=== PATIENT | male | born 1970 | race Caucasian/White ===

== ENCOUNTER 2016-11-29 23:30 | Emergency (ER) | payer OTHER ==
[~2016-11-29] VITALS: Ht 175.3 cm; Wt 105.7 kg
[2016-11-30] MEDS ORDERED: NS 1,000 ML IV ONE (01:00)
[2016-11-30] MEDS ORDERED: ASPIRIN 325 MG TAB PO ONE (01:00)
[2016-11-30 01:18] LABS: ANION GAP 1 MEQ/L (8-16); BLOOD UREA NITROGEN 11 MG/DL (7-18); CALCIUM LEVEL 8.8 MG/DL (8.5-10.1); CARBON DIOXIDE LEVEL 31 MEQ/L (21-32); CHLORIDE LEVEL 109 MEQ/L (98-107); CREATININE FOR GFR 0.98 MG/DL (0.70-1.30); GLOMERULAR FILTRATION RATE > 60.0 (>60); GLUCOSE, FASTING 100 MG/DL (70-105); POTASSIUM SERUM 3.9 MEQ/L (3.5-5.1); SODIUM LEVEL 141 MEQ/L (136-145)
[2016-11-30 01:41] LABS: BASO # 0.1 K/mm3 (0.0-0.2); EOS # 0.2 K/mm3 (0.0-0.50); EOS % 3.5 % (0.0-3.0); LARGE UNSTAINED CELL # 0.1 K/mm3 (0.0-0.4); LARGE UNSTAINED CELL % 1.6 % (0.0-4.0); LYMPH # 1.7 K/mm3 (1.5-4.5); LYMPH % 22.5 % (24.0-44.0); MEAN CORPUSCULAR HEMOGLOBIN 31.1 pg (27.0-33.0); MEAN CORPUSCULAR VOLUME 88.9 fl (80.0-96.0); MONO # 0.4 K/mm3 (0.0-0.8); MONO % 5.1 % (0.0-5.0); NEUTROPHILS # 4.7 K/mm3 (1.8-7.7); NEUTROPHILS % 66.2 % (36.0-66.0); PLATELET COUNT, AUTOMATED 197 k/mm3 (150-450); RED CELL DISTRIBUTION WIDTH 12.7 % (11.5-14.5)
[2016-11-30 01:47] LABS: INR 1.04
[2016-11-30] MEDS ORDERED: ISOVUE-370 76% 100ML VIAL (Q9967) As Ordered ONE (01:58)
[2016-11-30] MEDS ORDERED: LIPI10TA PO (03:23)
[2016-11-30] MEDS ORDERED: METF10004 PO (03:23)
[2016-11-30 05:08] VITALS: BP 141/90
[2016-11-30] MEDS ORDERED: ASPI81TA85 PO (05:11)
--- NOTE | 2016-11-30 07:40 | ECGEPIP ---
Stationary ECG Study [facility] - ED Test Date: 2016-11-30 Pat Name: NAOH FERRARO Department: Room: - Gender: [employer] Software Consultant: [email or web address] : 1970 Requested By: BRANDEE ESTRELLA Order Number: [id number] Reading MD: Perla Mooney Measurements Intervals [place] Rate: 64 P: 18 MT: 156 QRS: -16 QRSD: 106 T: 0 QT: 423 QTc: 439 Interpretive Statements SINUS RHYTHM INCOMPLETE RIGHT BUNDLE BRANCH BLOCK NO PRIOR FOR COMPARISON Electronically Signed On 11-30-2016 7:40:06 EDT by Perla Mooney
--- NOTE | 2016-11-30 10:48 | REPUSA ---
CLINICAL HISTORY: Pain, exclude PE. TECHNIQUE: Multiple incremental axial, coronal and oblique images are obtained from the thoracic inle t to the upper abdomen. Intravenous contrast material was administered as per pulmonary embolism prot ocol. COMMENTS: There is excellent opacification of pulmonary arterial system without evidence for pulmonary embolism . Aorta is of normal caliber without evidence for dissection or aneurysm. There is no evidence of pleural or parenchymal mass. Bilateral basilar atelectatic pulmonary changes. There are no pleural effusions. There is no evidence of hilar or mediastinal lymphadenopathy. The hea rt and great vessels are within normal limits. Images of the upper abdomen demonstrate no evidence of adrenal mass. The bony structures are free of lytic or blastic lesions. IMPRESSION: No evidence for pulmonary embolism. Bilateral basilar atelectatic pulmonary changes. Thank you for your kind referral of this patient.
--- NOTE | 2016-12-01 11:22 | ECGEPIP ---
Stationary ECG Study [facility] - ED Test Date: 2016-11-29 Pat Name: NOAH FERRARO Department: Room: - Gender: [employer] Consultant: [email or web address] : 1970 Requested By: BRANDEE ESTRELLA Order Number: [id number] Reading MD: Perla Mooney Measurements Intervals [place] Rate: 73 P: 21 UT: 164 QRS: -24 QRSD: 105 T: -2 QT: 396 QTc: 438 Interpretive Statements SINUS RHYTHM BORDERLINE LEFT AXIS DEVIATION INCOMPLETE RIGHT BUNDLE BRANCH BLOCK MINIMAL VOLTAGE CRITERIA FOR LVH, CONSIDER NORMAL VARIANT SIMILAR 11/30/16 Electronically Signed On 12-01-2016 11:21:49 EDT by Perla Mooney
== END 2016-11-30 05:21 | disposition home or self-care (01) ==
LOC: M ED 23:30
DX: R00.2 Palpitations (principal); R07.89 Other chest pain; Z87.891 Personal history of nicotine dependence; Z79.82 Long term (current) use of aspirin; Z79.899 Other long term (current) drug therapy; Z79.84 Long term (current) use of oral hypoglycemic drugs; Z88.8 Allergy status to other drugs, medicaments and biological substances; Z88.1 Allergy status to other antibiotic agents
CPT/HCPCS: 71275; 80048; 82550; 82553; 85025; 85610; 85730; 93005; 96360; 96361; 99285; Q9967